=== PATIENT | female | born 1935 | race Caucasian/White ===

== ENCOUNTER → 2017-04-30 | Outpatient (CLI) | payer MEDICARE, BC ==
[~2017-04-30] MED LIST: ALDACTAZIDE 25/1 TAB PO; AMBIEN5 MG PO; ASPIRIN (CHILDR81 MG PO; ASPIRIN EC325 MG PO; BREO ELLIPTA 21 EACH INH; CALCIUM GLUC500 MG PO; CEFTIN500 MG PO; CITRACAL+D(315M1 TAB PO; CO Q-10200 MG PO; DELTASONE10 MG PO; EFFIENT10 MG PO; FASLODEX IV; FISH OIL1000 MG PO; GUIATUSS AC 1515 ML PO; IPRAT-ALBUT 0.5-3 ML INH; LEVAQUIN500 MG PO; LUTEIN20 M1 PO; LYRICA 50MG CAP50 MG PO; LYRICA 75MG CAP75 MG PO; MULTIPLE VITAM1 EACH PO; NORCO 5-325 MG1 TAB PO; PRAVACHOL40 MG PO; PREDNISONE10 MG PO; PRILOSEC20 MG PO; PRINIVIL (ZESTR20 MG PO; RECLAST 55 MG/100 M IV; SYMBICORT 16010.2 GM INH; TESSALON PERLE100 MG PO; TYLENOL325 MG PO; VITAMIN C1000 MG PO; VITAMIN D1000 UNIT PO; ZETIA10 MG PO; ZITHROMAX250 MG PO; ZOLOFT50 MG PO
== END | disposition disaster alternative care site (69) ==
LOC: GRAD 06:52
DX: C50.911 Malignant neoplasm of unspecified site of right female breast (principal); C50.912 Malignant neoplasm of unspecified site of left female breast; M89.9 Disorder of bone, unspecified; M81.0 Age-related osteoporosis without current pathological fracture; C79.2 Secondary malignant neoplasm of skin; S22.49XD Multiple fractures of ribs, unspecified side, subsequent encounter for fracture with routine healing; R63.4 Abnormal weight loss; X58.XXXD Exposure to other specified factors, subsequent encounter